=== PATIENT | male | born 1960 | race Caucasian/White ===

== ENCOUNTER 2024-11-14 12:08 | Outpatient (CLI) | payer OTHER, SELFPAY ==
--- NOTE | ~2024-11-14 | XR_ITS ---
EXAMINATION:[id number]_CR DATE: 11/14/2024 12:47 INDICATION: Cervical radiculopathy TECHNIQUE: AP, lateral, lateral swimmers and odontoid views of the cervical spine are provided. COMPARISON: None FINDINGS: 2 mm retrolisthesis C5 on C6. Odontoid is intact. Mild atlantoaxial osteoarthritis. Vertebral body heights are normal. Moderate disc height loss with moderate bilateral uncovertebral osteoarthritis at C5-C6. Suggestion of similar degree of joint space narrowing and uncovertebral osteoarthritis at C6-C7 which is poorly profiled on the frontal projection and obscured due to underpenetration the lateral projection. There is severe facet osteoarthritis the left at C3-C4 and C4-C5. Additional multilevel mild to moderate cervical facet osteoarthritis. Atherosclerotic calcifications at the bilateral carotid bulbs. Prevertebral soft tissues are otherwise normal. Visualized portions of the upper lungs are clear. IMPRESSION: 1. Moderate lower cervical spondylosis. Reviewed, dictated and finalized at location A.
--- NOTE | ~2024-11-14 | XR_ITS ---
EXAM/ PROCEDURE: XR lumbar spine 2-3V - 11/14/2024 12:18 CDT HISTORY: 64 years old Male with Radiculopathy, lumbar region COMPARISON: None available TECHNIQUE: Three view(s) FINDINGS/ IMPRESSION: There are no fractures or dislocations.Multilevel degenerative changes are seen. Intervertebral disc space narrowing at T12-L1 and L4-5. Reviewed, dictated and finalized at location N.
== END 2024-11-14 12:09 | disposition home or self-care (01) ==
PROVIDERS: PCP Pain Medicine Interventional Pain Medicine; Visit Provider Pain Medicine Interventional Pain Medicine
DX: M47.23 Other spondylosis with radiculopathy, cervicothoracic region (principal); M47.26 Other spondylosis with radiculopathy, lumbar region; M47.27 Other spondylosis with radiculopathy, lumbosacral region
CPT/HCPCS: 72040; 72100